=== PATIENT | female | born 1955 | race Caucasian/White ===

== ENCOUNTER 2016-06-07 04:08 | Emergency (ER) | payer OTHER, MEDICARE ==
[~2016-06-07] VITALS: Ht 167.6 cm; Wt 59.0 kg
--- NOTE | 2016-06-07 04:19 | ED GENERAL ADULT ---
See Addendum History of Present Illness General Chief Complaint: General Adult Stated Complaint: HYPOGLYCEMIC Source: patient, family, old records, EMS Exam Limitations: no limitations Vital Signs & Intake/Output Vital Signs & Intake/Output Vital Signs Date Time Temp Pulse Resp B/P Pulse O2 O2 Flow FiO2 Ox Delivery Rate 06/07 0834 110 20 115/53 96 Nasal 2.0L Cannula 06/07 0730 93 20 92/49 94 Nasal 2.0L Cannula 06/07 0702 96.8 86 20 106/72 99 Room Air 06/07 0421 96.6 85 20 112/65 99 Room Air Triage Nurses Notes Reviewed? yes HPI: Patient is a diabetic on insulin pump. woke up to hear her speaking in [place]. He checked a fingerstick and was very low. EMS was contacted. Patient's blood sugar was less than 30. Patient was started on a D10 drip with resolution of her symptoms. Patient is currently alert and oriented 3. Patient denies any chest pain or shortness of breath. Patient denies any nausea or vomiting. 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 (RIVAS LIM,GIOVANNI Hernandez) Allergies Coded Allergies: No Known Allergies (06/07/16) (NICOLE BHATIA DO) Past History Travel History Traveled to [place] past 21 day No Medical History Any Pertinent Medical History? see below for history Cardiovascular: hypertension Endocrine: diabetes Surgical History Surgical History: non-contributory Psychosocial History Who do you live with Spouse What is your primary language Thai Tobacco Use: Never used ETOH Use: denies use Illicit Drug Use: denies illicit drug use Family History Hx Contributory? No (GIOVANNI HATHAWAY MD) Review of Systems Review of Systems Constitutional: Reports: no symptoms. Respiratory: Reports: no symptoms. Cardiovascular: Reports: no symptoms. GI: Reports: no symptoms. Musculoskeletal: Reports: no symptoms. Neurological/Psychological: Reports: no symptoms. Hematologic/Endocrine: Reports: no symptoms. Immunologic/Allergic: Reports: no symptoms. (RIVAS LIM,GIOVANNI Hernandez) Physical Exam Physical Exam General Appearance: well developed/nourished, alert, awake, mild distress Head: atraumatic, normal appearance Eyes: Bilateral: PERRL, EOMI. Ears, Nose, Throat: normal pharynx, normal ENT inspection, hearing grossly normal Neck: normal inspection, supple, full range of motion Respiratory: normal breath sounds, chest non-tender, no respiratory distress, lungs clear Cardiovascular: regular rate/rhythm, normal peripheral pulses Gastrointestinal: normal bowel sounds, soft, non-tender, no organomegaly Back: normal inspection, normal range of motion Extremities: normal inspection, normal capillary refill, normal range of motion, no edema, RIGHT WRIST IN CAST Neurologic/Psych: no motor/sensory deficits, awake, alert, oriented x 3, normal mood/affect Core Measures ACS in differential dx? No CVA/TIA Diagnosis: No Severe Sepsis Present: No Septic Shock Present: No (RIVAS LIM,GIOVANNI Hernandez) Progress Differential Diagnoses I considered the following diagnoses in my evaluation of the patient: [ HYPOGLYCEMIA] Plan of Care: Orders Procedure Date/time Status Nothing by Mouth 06/07 L Active Regular Diet 06/07 B Complete Admit to inpatient 06/07 0839 Active Vital Signs 06/07 0839 Active Code Status 06/07 0839 Active Telemetry/Central Supply Assistant 06/07 0645 Active TROPONIN LEVEL 06/07 0645 Complete COMPREHENSIVE METABOLIC PANEL 06/07 0645 Complete CBC WITHOUT DIFFERENTIAL 06/07 0645 Complete EKG 06/07 0645 Active Laboratory Tests 06/07/16 0653: Anion Gap 15, Estimated GFR > 60, BUN/Creatinine Ratio 24.4, Glucose 447 H, Calcium 9.3, Total Bilirubin 0.6, AST 36, ALT 47, Alkaline Phosphatase 126, Troponin I < 0.01, Total Protein 6.6, Albumin 4.2, Globulin 2.4, Albumin/ Globulin Ratio 1.8, CBC w Diff NO MAN DIFF REQ, RBC 4.47, MCV 92.3, MCH 31.2 H, RDW 12.6, MPV 8.9, Gran % 86.7 H, Lymphocytes % 8.3 L, Monocytes % 4.5, Eosinophils % 0.4, Basophils % 0.1, Absolute Granulocytes 9.6 H, Absolute Lymphocytes 0.9 L, Absolute Monocytes 0.5, Absolute Eosinophils 0, Absolute Basophils 0, PUBS MCHC 33.8 OBSERVE (RIVAS LIM,GIOVANNI Hernandez) Initial ED EKG: none Hand-Off Endorsed To: NICOLE BHATIA DO Endorsed Time: 0700 Pending: CT, labs Comments: Patient batteries on her insulin pump are running low so unsure if her pump has been dosing her appropriately. Patient's brought a new batteries. Patient was feeling much better and she ate and drink juice in the emergency department. Her insulin pump was restarted and the patient was observed. Approximately 45 minutes after her insulin pump was reinitiated patient had tonic-clonic seizure. Patient only had 1 seizure in the past and that was when she was hypoglycemic. Patient's fingerstick was 415. states that that is normal for her after she is hypoglycemic for her then to rebound hyperglycemia. At this point we will obtain blood work and get a CAT scan. (RIVAS LIM,GIOVANNI Hernandez) Departure Departure Disposition: STILL A PATIENT Condition: Stable Clinical Impression Primary Impression: Hypoglycemia Secondary Impressions: Seizure Referrals: APPLE RODRIGUEZ MD (PCP/Family) Additional Instructions: FOLLOW UP WITH YOUR RADIO PROGRAM DIRECTOR RETURN IF SYMPTOMS WORSEN OR FOR ANY CONCERNS Departure Forms: Customer Survey General Discharge Information (GIOVANNI HATHAWAY MD) Admission Note Spoke With: JIE DOWNEY MD Documentation of Exam: Documentation of any treatments & extenuating circumstances including Concerns Regarding Discharge (functional status, medication knowledge or non-compliance, living conditions, etc.) that warrant an admission rather than observation: [The patient needs admission for neuro checks every 4 hours, neurology consultation, consider MRI of the brain, consider EEG, monitoring of serum glucose levels, consider endocrinology consult She had multiple seizures in the emergency department, (NICOLE BHATIA DO) Critical Care Note Critical Care Note Critical Care Time: non-applicable (RIVAS LIM,GIOVANNI Hernandez)
--- NOTE | 2016-06-07 04:22 | NUR ---
PT ALVA FROM HOME C/O LOW BLOOD SUGAR. ON EMS ARRIVAL TO THE HOME PT BS 32. PT RECIEVED 250MLS D 10 IN FIELD AND ARRIVES ALERT, ORIENTED AND BLOOD SUGAR 93 HERE.
--- NOTE | 2016-06-07 05:03 | NUR ---
BLOOD SUGAR 143 S/P 250ML BAG OF D 10.
--- NOTE | 2016-06-07 05:24 | NUR ---
NO BOXED LUNCHES AVAILABLE. PT PROVIDED WITH MULTIPLE PACKAGES OF JIM CRACKERS AND JUICE.
--- NOTE | 2016-06-07 06:01 | NUR ---
INSULIN PUMP TURNED BACK ON. PER WE WILL MONITOR PT APPROX 1HR AND RECHECK SUGAR TO MAKE SURE IT IS HOLDING.
--- NOTE | 2016-06-07 06:57 | NUR ---
THIS RN WENT TO TAKE BLOOD SUGAR. PT HAD WITNESSED SEIZURE LASTING APPROX 20 SECONDS. PT AWAKE AND ALERT AT THIS TIME. BLOOD SUGAR 416. AT BEDSIDE. LABS DRAWN AND SENT. SEIZURE PADS PLACED ON BED.
[2016-06-07 07:18] LABS: ABSOLUTE BASOPHIL COUNT 0 /CUMM (0.0-0.2); ABSOLUTE EOSINOPHIL COUNT 0 /CUMM (0.0-0.7); ABSOLUTE GRANULOCYTE CT 9.6 /CUMM (1.4-6.5); ABSOLUTE LYMPH COUNT 0.9 /CUMM (1.2-3.4); ABSOLUTE MONOCYTE COUNT 0.5 /CUMM (0.10-0.60); BASOPHIL % 0.1 % (0.0-2.0); EOSINOPHIL % 0.4 % (0-5); HEMATOCRIT 41.2 % (37-47); MEAN CORPUSCULAR HGB 31.2 PG (27.0-31.0); MEAN CORPUSCULAR HGB CONC 33.8 G/DL (33.0-37.0); MEAN CORPUSCULAR VOLUME 92.3 FL (81.0-99.0); MEAN PLATELET VOLUME 8.9 FL (7.4-10.4); RBC DISTRIBUTION WIDTH 12.6 % (11.5-14.5); RED BLOOD CELL CT 4.47 /CUMM (4.20-5.40); WHITE BLOOD CELL COUNT 11.1 /CUMM (4.8-10.8)
--- NOTE | 2016-06-07 07:29 | NUR ---
RECEIVED REPORT FROM YAHAIRA JAIME. PT WAS AT CT SCAN WHEN NOTIFIED OF PATIENT HAVING ANOTHER SEIZURE, THIS RN, YAHAIRA JAIME, DR HATHAWAY AND DR BHATIA AT BEDSIDE TO CT SCAN, PT MEDICATED WITH 2MG ATIVAN IV AND SEIZURE SUBSIDED. PT TAKEN BACK TO ROOM 3, AT BEDSIDE. NSR ON CM, PLACED ON 2L O2 VIA NC. SEIZURE PADS IN PLACE.
[2016-06-07 07:30] LABS: GRANULOCYTE % 86.7 % (42.2-75.2); PLATELET COUNT 212 /CUMM (130-400)
--- NOTE | 2016-06-07 07:44 | CT SCAN REPORT ---
EXAMINATION: CT HEAD WITHOUT CONTRAST CLINICAL INFORMATION: Intracranial hemorrhage. Question seizure. COMPARISON: CT scan of the head 09/13/2009. TECHNIQUE: Contiguous axial imaging was performed from the skull base to vertex without intravenous administration of contrast. DLP: 1058.32 mGy-cm FINDINGS: There is no acute intracranial hemorrhage or abnormal extra axial collection. No intracranial mass effect or midline shift. There is subtle asymmetry of the lateral ventricles. Jean-white matter differentiation is grossly preserved and there is no evidence of acute territorial infarct. The calvarium and skull base are intact. Mastoid air cells and middle ear cavities are well aerated. Visualized paranasal sinuses are well aerated. IMPRESSION: Unremarkable CT scan of the head. No evidence of acute territorial infarct or hemorrhage. A brain MRI would provide better anatomic characterization particularly in the setting of seizure.
--- NOTE | 2016-06-07 08:05 | NUR ---
AWAITING ON PUMP ARRIVAL FOR KEPPRA ADMINISTRATION.
--- NOTE | 2016-06-07 08:17 | NUR ---
PT STARTING TO WAKE UP, RESPONDS TO VERBAL STIMULI.
--- NOTE | 2016-06-07 09:02 | NUR ---
MEDICATED WITH ZOFRAN (SEE MAR)
--- NOTE | 2016-06-07 09:28 | NUR ---
HOUSE STAFF TO [facility].
--- NOTE | 2016-06-07 09:53 | NUR ---
PT IS GOING TO ROOM 210-2
--- NOTE | 2016-06-07 10:13 | NUR ---
POSSIBLE TRANSFER TO [facility], AWAITING DISPOSITION FROM HOUSE STAFF.
[2016-06-07 10:47] VITALS: BP 136/59
--- NOTE | 2016-06-07 10:57 | NUR ---
CXR AT BEDSIDE.
--- NOTE | 2016-06-07 11:24 | NUR ---
TRANSPORT BOOKED ETA WITHIN 5 MINUTES
--- NOTE | 2016-06-07 11:30 | NUR ---
BLOOD CULTURES X 2 OBTAINED/SENT TO LAB. REPEAT ACCUCHECK: 408 MED ORDERED WITH REGULAR INSULIN 4 UNITS IV, ALSO MED WITH ROCEPHIN 1GM IV AFTER BLOOD CULTURES WERE OBTAINED. PT REMAINS DISORIENTED, RESTLESS ON STETCHER, MOVING FROM SIDE TO SIDE, AT BEDSIDE.
--- NOTE | 2016-06-07 11:36 | NUR ---
MED WITH ZOFRAN 4MG IV FOR C/O NAUSEA. TRANSPORT TEAM AND DR BHATIA AND AT BEDSIDE.
--- NOTE | 2016-06-07 11:42 | RADIOLOGY REPORT ---
EXAMINATION: XR PORTABLE CHEST CLINICAL INFORMATION: Fever. Evaluate for pneumonia. COMPARISON: None TECHNIQUE: Portable AP view of the chest was obtained. FINDINGS: Lungs are well expanded and clear. No focal pulmonary consolidation or pleural effusion. Cardiac silhouette is normal in size. The mediastinal and hilar contours are normal. The visualized bones are intact. IMPRESSION: No evidence of pneumonia.
--- NOTE | 2016-06-07 11:55 | NUR ---
REPORT CALLED TO [facility] TRIAGE NURSE PT TO [facility] VIA AMBULANCE.
== END 2016-06-07 11:55 | disposition short-term general hospital (02) ==
LOC: ENRESERVTM → CANRESERV → ENRESERVDT → ERH 04:08 → ERHI 08:39 → ERH 11:55 → CANBEDREQ 06-08 08:30
PROVIDERS: Emergency Medicine
DX: E11.649 Type 2 diabetes mellitus with hypoglycemia without coma (principal); R56.9 Unspecified convulsions; R50.9 Fever, unspecified; I10 Essential (primary) hypertension
CPT/HCPCS: 87040; 87804; 87804-59; 93005; 93010; 96374; 96375; 96376; J0131; J0696; J1953; J2405; J3101